=== PATIENT | male | born 1980 | race Caucasian/White ===

== ENCOUNTER 2019-03-06 19:27 | Emergency (ER) | payer OTHER, SELFPAY ==
[2019-03-06 19:34] VITALS: BP 153/106; PULSE 65; TEMP 36.6; O2SAT 98; BMI 28.9
--- NOTE | 2019-03-06 19:41 | ED_ITS ---
HPI - Ear Problem <Catalina Wolfe PA-C - Last Filed: 03/06/19 20:52> General Chief complaint: Ear Stated complaint: states severe ear ache Time Seen by Provider: 03/06/19 19:33 Source: patient Mode of arrival: Ambulatory Limitations: no limitations History of Present Illness HPI Narrative: This 39-year-old male comes to ED secondary to severe right ear pain. He states that he has had this periodically over about the last 12 years, feels like the pain is deep in his ear, lancinating, worse with any movement of the ear or with bumps in the road on the way here for example. He states that he is not noise sensitive, hearing seems normal, no ringing in the ear. He states he has not had any fever, cough, or upper respiratory symptoms at all. He has not noted pain in his teeth. He does feel like pain can radiate down the posterior ear and into the back of his jaw a little bit, but seems to start in his ear. Pain started suddenly and has progressively worsened in the last few h ours. He states this is similar to his previous episodes but more severe. He states he has been evaluated for this previously and there seems to be some inflammation but no other specific findings. Tends to get better in a day or 2. He denies any water exposure, injury, recent barotrauma or travel does work on a boat as a fisherman Related Data Previous Rx's Medication Instructions Recorded dexamethasone 2 mg tablet 10 mg PO ONCE #5 tab 10/22/17 hydrocodone-acetaminophen [[place]] 1 tab PO Q4-6H PRN #8 tab 03/06/19 naproxen 500 mg PO Q8H #20 tab 03/06/19 ofloxacin 10 drop EAR-RIGHT DAILY 10 Days 03/06/19 #10 ml Allergies Allergy/AdvReac Type Severity Reaction Status Date / Time No Known Drug Allergies Allergy Verified 10/22/17 12:01 Review of Systems <Catalina Wolfe PA-C - Last Filed: 03/06/19 20:52> Review of Systems ROS Unobtainable: All systems reviewed & are unremarkable except as noted in HPI and below Patient History <Catalina Wolfe PA-C - Last Filed: 03/06/19 20:52> Medical History (Updated 03/06/19 @ 20:18 by Catalina Wolfe PA-C) Earache, chronic (Chronic) Surgical History (Updated 03/06/19 @ 20:03 by Catalina Wolfe PA-C) No history of previous surgery (Chronic) Social History Smoking Status: Current every day smoker alcohol intake: current tobacco type: cigarettes alcohol intake frequency: a few times a week Alcohol type: beer Substance Use Type: does not use Exam <Catalina Wolfe PA-C - Last Filed: 03/06/19 20:52> Narrative Exam Narrative: GENERAL APPEARANCE: Patient sitting appears uncomfortable, in NAD HEAD: No sinus TTP. No mastoid tenderness EYES: PERRL, EOMI. EARS: Right ear canal mildly erythematous and edematous, exquisitely tender with pressure on the earlobe and just inferior to the ear, normal tympanic membrane, left is normal ORAL CAVITY: Normal oropharynx. THROAT: Clear. NECK/THYROID: Neck supple, full range of motion, no cervical lymphadenopathy. LUNGS: Clear to auscultation bilaterally, no cough on exam. HEART: RRR without murmur, nl S1, S2, no S3 or S4. Initial Vital Signs Initial Vital Signs: Vital Signs Temperature 97.9 F 03/06/19 19:34 Pulse Rate 65 03/06/19 19:34 Blood Pressure 153/106 H 03/06/19 19:34 Pulse Oximetry 98 03/06/19 19:34 <Rafiq Long DO - Last Filed: 03/06/19 21:01> Initial Vital Signs Initial Vital Signs: Vital Signs Temperature 97.9 F 03/06/19 19:34 Pulse Rate 65 03/06/19 19:34 Blood Pressure 153/106 H 03/06/19 19:34 Pulse Oximetry 98 03/06/19 19:34 Course <Catalina Wolfe PA-C - Last Filed: 03/06/19 20:52> Course Additional Information: Patient does appear to have otitis externa and will treat for this, however he has had this recurrent, worsening intermittent lancinating pain for years now, so suspect possible neuropathic process on top of that, not typical for trigeminal neuralgia, no evidence of mastoiditis on exam. Will treat with Floxin and pain medication, however advised importance of follow-up with PCP and further evaluation and treatment pending his progress. He is agreeable. Reviewed history and findings of atypical pain with attending Dr. Long who is agreeable with plan Vital Signs Vital signs: Vital Signs - 8 hr 03/06/19 19:34 Temperature 97.9 F Pulse Rate 65 Blood Pressure 153/106 H Pulse Oximetry 98 <Rafiq Long, DO - Last Filed: 03/06/19 21:01> Vital Signs Vital signs: Vital Signs - 8 hr 03/06/19 19:34 Temperature 97.9 F Pulse Rate 65 Blood Pressure 153/106 H Pulse Oximetry 98 Discharge Plan Departure Patient Disposition: Home Clinical Impression: Neuropathic pain Otitis externa Qualifiers: Otitis externa type: unspecified type Chronicity: acute Laterality: right Qualified Code(s): H60.501 - Unspecified acute noninfective otitis externa, right ear Discharge Date/Time: 03/06/19 20:27 Instructions: DI for Otitis Externa Activity Restrictions/Additional Instructions: I have sent prescriptions to [facility] in [place] for you. Please start the ear drops as soon as you pick them up, when you get home take 1 of the anti- inflammatory pain relievers as well as a hydrocodone/acetaminophen and rest. Please call your PCP 1st thing in the morning, let them know you were seen in the ED and we would like you to be seen for follow-up, preferably tomorrow. Please avoid driving or working while you take the hydrocodone as it could make you sleepy. As we talked about, you do have inflammation in your ear canal and we will treat you for infection, however this recurrent lancinating pain that you describe could also be nerve pain. You may need different medications or treatment. It is important to follow up with your PCP for this to assess your progress and perhaps do further testing or referral. As we discussed, you should return if you have any acutely worsening symptoms in the interim Prescriptions: New hydrocodone-acetaminophen [[place]] 5-325 mg tablet 1 tab PO Q4-6H PRN (Reason: acute ear pain) Qty: 8 RF: 0 naproxen 500 mg tablet 500 mg PO Q8H Qty: 20 RF: 0 ofloxacin 0.3 % drops 10 drop EAR-RIGHT DAILY 10 Days Qty: 10 RF: 0 No Action dexamethasone 2 mg tablet 10 mg PO ONCE Qty: 5 RF: 0 Referrals: Bassem Law DO [Non-Staff] - Stand Alone Forms: Work Release Note <Rafiq Long DO - Last Filed: 03/06/19 21:01> Sign Out Provider Sign Out Attestation: Dr Long Co-Sign Statement: I was available for consultation during this patient's emergency department visit. This chart is signed by myself for administrative purposes only. I did not have direct contact with this patient during this visit. They were seen independently by the APC.
== END 2019-03-06 20:27 | disposition home or self-care (01) ==
PROVIDERS: Emergency Provider Internal Medicine
DX: M79.2 Neuralgia and neuritis, unspecified (principal); H60.501 Unspecified acute noninfective otitis externa, right ear
CPT/HCPCS: 99282; 99283